=== PATIENT | male | born 1950 | race Caucasian/White ===

== ENCOUNTER 2021-01-28 13:49 | Observation (INO) ==
[2021-01-28 15:03] LABS: Basophils % 0.3 % (0.0-0.8); Eosinophils % 0.3 % (0.00-10.9); Hematocrit 47.6 VOL% (42.0-52.0); Hemoglobin 15.3 GM/DL (14.0-18.0); Immature Granulocytes % 0.2 %; Immature Granulocytes Absolute 0.02 #; Lymphocytes # 2.1 10*3/uL (1.4-4.0); Lymphocytes % 23.5 % (21.2-54.2); Mean Corpuscular HGB Conc 32.1 GM/DL (32-36); Mean Corpuscular Volume 100.2 FL (87-102); Mean Platelet Volume 9.7 FL (9.6-12.0); Monocytes % 9.8 % (1.7-12.7); Neutrophils % 65.9 % (38.7-73.9); Platelet Count 217 T/CUMM (130-400); Red Blood Count 4.75 MC/CUMM (3.8-5.5); Red Cell Distribution Width 13.3 % (9.3-17.3)
[2021-01-28 15:30] LABS: Albumin 3.8 G/DL (3.4-5.0); Bilirubin,Total 0.7 MG/DL (0.20-1.00); Calcium 8.9 MG/DL (8.5-10.1); Osmolality,Calculated 285.3 MOS/KG (273-304); Potassium 4.3 MMOL/L (3.5-5.1); Total Protein 8.1 G/DL (6.4-8.2)
[2021-01-28] MEDS ORDERED: SODIUM CHLORIDE 0.9% 1,000 ML IV STA (15:30)
[2021-01-28 17:59] LABS: Bilirubin,Urine Negative (Negative); Blood, Urine Small mg/dL (Negative); Glucose,Urine (UA) Negative (Negative); Ketones,Urine 80 mg/dL (Negative); Mucus,Urine Few /LPF (Occasional); Nitrite,Urine Negative (Negative); Protein,Urine Negative; RBC,Urine 4 /HPF (0-4); Urine Appearance CLEAR (Clear); Urine Color Yellow (Yellow); Urine Specific Gravity 1.026 (1.001-1.035)
[2021-01-28 18:11] LABS: Barbiturates Screen,Urine Negative (Negative); Benzodiazepines Screen,Urine Negative (Negative); Cannabinoid Screen,Urine Negative (Negative); Opiate Screen,Urine Negative (Negative); Phencyclidine Screen,Urine Negative (Negative)
[2021-01-28] MEDS ORDERED: ONDANSETRON 4 MG/2 ML VIAL IV PRN (18:31)
[2021-01-28] MEDS ORDERED: ACETAMINOPHEN 325 MG TABLET PO PRN (18:31)
[2021-01-28] MEDS ORDERED: LABETALOL 20 MG/4 ML SYRINGE IV PRN (18:31)
[2021-01-28] MEDS: ENOXAPARIN 40 MG/0.4 ML SYRINGE SUBCUT SCH (19:19)
[2021-01-28] MEDS: SODIUM CHLORIDE 0.9% 1,000 ML IV SCH (20:45)
[2021-01-28] MEDS: GABAPENTIN 600 MG TABLET PO SCH (22:02)
[2021-01-28] MEDS: MELATONIN 3 MG TABLET PO PRN (22:02)
[2021-01-28] MEDS: DONEPEZIL 10 MG TABLET PO SCH (22:03)
[2021-01-28] MEDS: FLUTICASONE/SALMETEROL 100-50 DISKUS 14 DOSE INH SCH (22:04)
[2021-01-29 05:05] LABS: Albumin 2.7 G/DL (3.4-5.0); Bilirubin,Total 0.5 MG/DL (0.20-1.00); Calcium 7.9 MG/DL (8.5-10.1); Osmolality,Calculated 282.4 MOS/KG (273-304); Potassium 3.5 MMOL/L (3.5-5.1); Risk Ratio 2.21; Total Protein 5.8 G/DL (6.4-8.2); VLDL Cholesterol 17.6 MG/DL
[2021-01-29] MEDS: SODIUM CHLORIDE 0.9% 1,000 ML IV SCH ×3 (05:50→18:44)
[2021-01-29] MEDS ORDERED: ASPIRIN EC 81 MG TABLET PO SCH (09:00)
[2021-01-29] MEDS: CLOPIDOGREL 75 MG TABLET PO SCH (09:19)
[2021-01-29] MEDS: CITALOPRAM 20 MG TABLET PO SCH (09:19)
[2021-01-29] MEDS: GABAPENTIN 600 MG TABLET PO SCH ×3 (09:19→20:57)
[2021-01-29] MEDS: PANTOPRAZOLE 40 MG TABLET PO SCH (09:19)
[2021-01-29] MEDS: ASPIRIN 325 MG TABLET PO SCH (09:19)
[2021-01-29] MEDS: NICOTINE 21 MG/24 HR PATCH TRANSDERM SCH (09:19)
[2021-01-29] MEDS: ATORVASTATIN 80 MG TABLET PO SCH (09:19)
[2021-01-29] MEDS: FLUTICASONE/SALMETEROL 100-50 DISKUS 14 DOSE INH SCH ×2 (09:29→20:58)
[2021-01-29] MEDS: ENOXAPARIN 40 MG/0.4 ML SYRINGE SUBCUT SCH (20:56)
[2021-01-29] MEDS: MELATONIN 3 MG TABLET PO PRN (20:57)
[2021-01-29] MEDS: DONEPEZIL 10 MG TABLET PO SCH (20:58)
[2021-01-30] MEDS: SODIUM CHLORIDE 0.9% 1,000 ML IV SCH (03:20)
[2021-01-30 05:16] LABS: Basophils % 0.3 % (0.0-0.8); Eosinophils # 0.2 10*3/uL (0.0-0.87); Eosinophils % 2.9 % (0.00-10.9); Hematocrit 35.5 VOL% (42.0-52.0); Hemoglobin 11.4 GM/DL (14.0-18.0); Immature Granulocytes % 0.3 %; Immature Granulocytes Absolute 0.02 #; Lymphocytes % 33.7 % (21.2-54.2); Mean Corpuscular HGB Conc 32.1 GM/DL (32-36); Mean Corpuscular Volume 100.6 FL (87-102); Mean Platelet Volume 9.8 FL (9.6-12.0); Monocytes % 11.6 % (1.7-12.7); Neutrophils % 51.2 % (38.7-73.9); Platelet Count 147 T/CUMM (130-400); Red Blood Count 3.53 MC/CUMM (3.8-5.5); Red Cell Distribution Width 13.3 % (9.3-17.3); White Blood Count 5.9 T/CUMM (4-12)
[2021-01-30 05:36] LABS: Calcium 7.5 MG/DL (8.5-10.1); Osmolality,Calculated 289.6 MOS/KG (273-304); Potassium 3.4 MMOL/L (3.5-5.1)
[2021-01-30] MEDS: CLOPIDOGREL 75 MG TABLET PO SCH (09:13)
[2021-01-30] MEDS: GABAPENTIN 600 MG TABLET PO SCH (09:13)
[2021-01-30] MEDS: ATORVASTATIN 80 MG TABLET PO SCH (09:13)
[2021-01-30] MEDS: ASPIRIN 325 MG TABLET PO SCH (09:13)
[2021-01-30] MEDS: FLUTICASONE/SALMETEROL 100-50 DISKUS 14 DOSE INH SCH (09:13)
[2021-01-30] MEDS: CITALOPRAM 20 MG TABLET PO SCH (09:13)
[2021-01-30] MEDS: PANTOPRAZOLE 40 MG TABLET PO SCH (09:13)
[2021-01-30] MEDS: NICOTINE 21 MG/24 HR PATCH TRANSDERM SCH (09:14)
[2021-01-30 11:42] VITALS: BP 117/56
[2021-01-30] MEDS ORDERED: MEMANTINE 5 MG TABLET PO SCH (21:00)
== END 2021-01-30 15:18 ==
LOC: N.ED 13:49 → N.EDINP 13:49 → SUATTDRO 18:31 → N.EDINP 20:11 → N.3E 20:20
PROVIDERS: ADMIT Internal Medicine; ATTEND Hospitalist